=== PATIENT | male | born 1990 | race Caucasian/White ===

== ENCOUNTER 2025-02-21 03:39 | Inpatient (IN) | payer OTHER ==
[~2025-02-21] VITALS: Ht 200.7 cm; Wt 149.7 kg
[2025-02-21] MEDS ORDERED: LIDOCAINE HCL 1% 20ML VIAL INFIL ONE (05:45)
[2025-02-21] MEDS: TETANUS, DIPHTHERIA, PERTUSSIS VAC/PF 0.5ML (>10YR OLD) IM ONE (06:28)
[2025-02-21] MEDS: KETOROLAC 30MG/ML VIAL IM ONE (06:30)
[2025-02-21 07:25] LABS: BASOPHILS % 0.4 % (0.0-2.0); EOSINOPHILS % 0.7 % (0.0-5.0); HEMATOCRIT. 39.4 % (42.0-52.0); HEMOGLOBIN. 13.4 g/dL (14.0-18.0); LYMPHOCYTES % 28.3 % (20.0-50.0); MEAN PLATELET VOLUME 10.3 fl (7.4-10.4); MONOCYTES % 7.9 % (2.0-8.0); NEUTROPHILS % 62.7 % (40.0-76.0); PLATELET 192 x1000/uL (130-400); RED BLOOD CELL COUNT 4.32 mill/uL (4.7-6.1); RED CELL DISTRIBUTION WIDTH 12.8 % (11.6-14.6)
[2025-02-21 08:00] VITALS: BP 150/91; PULSE 63; RESP 19; TEMP 36.4; O2SAT 100
[2025-02-21 08:03] LABS: CREATININE 0.8 mg/dL (0.6-1.3)
[2025-02-21] MEDS: CEFAZOLIN 1000MG PREMIX 50 ML IV ONE ×2 (08:03→08:18)
[2025-02-21 08:04] LABS: UREA NITROGEN BLOOD 15 mg/dL (9-23)
[2025-02-21 08:05] LABS: ASPARTATE AMINOTRANSFERASE 28 IU/L (<34)
[2025-02-21 08:06] LABS: BILIRUBIN TOTAL 0.9 mg/dL (0.1-1.0); PROTEIN TOTAL 6.5 g/dL (6.0-8.3)
[2025-02-21 08:17] LABS: ERYTHROCYTE SEDIMENTATION RATE 2 mm/hr (0-15)
[2025-02-21 08:46] LABS: C REACTIVE PROTEIN HIGH SENS 0.21 mg/l (<1.00)
[2025-02-21 12:00] VITALS: BP 130/73; PULSE 62; RESP 62; TEMP 36.4; O2SAT 100
[2025-02-21] MEDS ORDERED: IPRATROPIUM/ALBUTEROL 0.5-3(2.5)MG/3ML NEB HHN PRN (12:00)
[2025-02-21] MEDS ORDERED: CLONIDINE 0.1MG TABLET PO PRN (12:00)
[2025-02-21] MEDS ORDERED: DOCUSATE SODIUM 100MG CAPSULE PO PRN (12:00)
[2025-02-21] MEDS ORDERED: ACETAMINOPHEN 325MG TABLET PO PRN (12:00)
[2025-02-21] MEDS ORDERED: NALOXONE HCL 0.4MG/ML VIAL IV PRN (12:00)
[2025-02-21] MEDS ORDERED: ONDANSETRON HCL 4MG/2ML INJ IV PRN (12:00)
[2025-02-21] MEDS: CEFAZOLIN 1000MG PREMIX 50 ML IV SCH (15:03)
[2025-02-21 16:00] VITALS: BP 142/86; PULSE 64; RESP 18; TEMP 36.4; O2SAT 100
[2025-02-21 17:36] VITALS: BP 130/73; PULSE 62; RESP 18; TEMP 36.1956
[2025-02-21] MEDS: HYDROCODONE/ACETAMINOPHEN 5/325MG TABLET PO PRN (21:41)
[2025-02-22] MEDS: ACETAMINOPHEN 325MG TABLET PO PRN (06:16)
[2025-02-22 08:00] VITALS: BP 128/83; PULSE 56; RESP 18; TEMP 36.6; O2SAT 100
[2025-02-22 09:12] LABS: BASOPHILS % 0.4 % (0.0-2.0); EOSINOPHILS % 1.4 % (0.0-5.0); HEMATOCRIT. 39.8 % (42.0-52.0); HEMOGLOBIN. 13.5 g/dL (14.0-18.0); LYMPHOCYTES % 22.0 % (20.0-50.0); MEAN PLATELET VOLUME 10.3 fl (7.4-10.4); MONOCYTES % 9.4 % (2.0-8.0); NEUTROPHILS % 66.8 % (40.0-76.0); PLATELET 178 x1000/uL (130-400); RED BLOOD CELL COUNT 4.35 mill/uL (4.7-6.1); RED CELL DISTRIBUTION WIDTH 12.6 % (11.6-14.6)
[2025-02-22 09:32] LABS: CREATININE 0.9 mg/dL (0.6-1.3); UREA NITROGEN BLOOD 14 mg/dL (9-23)
[2025-02-22 12:00] VITALS: BP 126/78; PULSE 58; RESP 18; TEMP 36.4; O2SAT 100
[2025-02-22 16:00] VITALS: BP 130/85; PULSE 64; RESP 18; TEMP 36.4; O2SAT 100
[2025-02-23] MEDS ORDERED: AMOX1TAB16 MT (12:15)
[2025-02-23] MEDS ORDERED: HYDR-4001 MT (12:15)
[2025-02-23] MEDS ORDERED: TOPUD PO (12:15)
[2025-02-23 12:35] VITALS: BP 129/86; PULSE 60; TEMP 98.2; O2SAT 99
== END 2025-02-23 14:18 | disposition home or self-care (01) | DRG 563 ==
LOC: ER 04:32 → EDBEDREQ 07:30 → EDBEDREQTM 07:30 → 6EST 07:30 → ENRESERV 08:08
PROVIDERS: ADMIT Internal Medicine; ATTEND Internal Medicine
DX: S92.912A Unspecified fracture of left toe(s), initial encounter for closed fracture (principal); X58.XXXA Exposure to other specified factors, initial encounter; Y93.89 Activity, other specified; Y92.89 Other specified places as the place of occurrence of the external cause; Y99.8 Other external cause status
CPT/HCPCS: 36415; 73660; 80048; 80053; 85025; 85651; 86141; 90715; 97116; 97162; 99285; J0690; J1885; J2003